=== PATIENT | female | born 1990 | race African-American/Black ===

== ENCOUNTER 2018-08-15 13:39 | Inpatient (IN) | payer OTHER ==
--- NOTE | 2018-08-15 14:16 | PDOC ---
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 Patient has had a uri since fri with symptoms of rhinorrhea, sore throat, cough productive of yellow sputum and subjective fever. Yesterday at PCP her BP was elevated 160's/110's (usually wnl w/o medication). she was prescribed lisinopril 10 and norvasc 5 as well as augmentin. This morning her blood work indicated that her creat went up to 5 from previously measured 2 ( 2 mo ago). today she is hyertensive despite taking lisinopril (not norvasc). She denies recent fatigue, edema, weight gain, oliguria, polyuria, frothy urine, malodorous urine, dysuria, hematuria, flank pain. Denies NSAID use. Has not taken prednisone since 2013. Follows with Dr Steinberg. 08/15/18 14:17 08/15/18 14:41 Past History - Past Medical History Allergies/Adverse Reactions: Allergies Allergy/AdvReac Type Severity Reaction Status Date / Time ibuprofen AdvReac Unknown Verified 06/30/15 08:16 Home Medications: Ambulatory Orders NK [No Known Home Medication] 06/30/15 Anemia: No Asthma: Yes Cancer: No Cardiac Disorders: No CVA: No COPD: No CHF: No Dementia: No Diabetes: No GI Disorders: No Disorders: No HTN: Yes Hypercholesterolemia: No Liver Disease: No Seizures: No Thyroid Disease: No - Immunization History Immunization Up to Date: Yes - Suicide/Smoking/Psychosocial Hx Smoking History: Never smoked Hx Alcohol Use: No Drug/Substance Use Hx: No Substance Use Type: Alcohol Hx Substance Use Treatment: No *Physical Exam - Vital Signs Last Vital Signs Temp Pulse Resp BP Pulse Ox 98.4 F 97 H 17 167/112 H 98 08/15/18 13:46 08/15/18 13:46 08/15/18 13:46 08/15/18 13:46 08/15/18 13:46 Moderate Sedation - Procedure Monitoring Vital Signs: Procedure Monitoring Vital Signs Temperature 98.4 F 08/15/18 13:46 Pulse Rate 97 H 08/15/18 13:46 Respiratory Rate 17 08/15/18 13:46 Blood Pressure 167/112 H 08/15/18 13:46 O2 Sat by Pulse Oximetry (%) 98 08/15/18 13:46 ED Treatment Course - LABORATORY CBC & Chemistry Diagram: 08/15/18 15:05 08/15/18 15:05 - ADDITIONAL ORDERS Additional order review: 08/15/18 15:[address] Lockhart about patient, ok to control htn with Norvasc, if unsuccessful can try hydralazine. 08/15/18 15:37 labs noted; creat 6.3, k 4.9, 2+ protein 2+ blood in urine. renal us p/d repeat BP 154/114, will administer hydralazine 10 iv patient to be admitted to m/s for BP management and further renal workup 08/15/18 15:42 08/15/18 15:43 *DC/Admit/Observation/Transfer Diagnosis at time of Disposition: Acute renal failure (ARF) Qualifiers: Acute renal failure type: unspecified Qualified Code(s): N17.9 - Acute kidney failure, unspecified Hypertension Qualifiers: Hypertension type: secondary to other renal disorders Qualified Code(s): I15.1 - Hypertension secondary to other renal disorders; N28.89 - Other specified disorders of kidney and ureter - Discharge Dispostion Decision to Admit order: Yes - Referrals Referrals: Luis A Morris MD [Primary Care Provider] - - Patient Instructions - Post Discharge Activity
[2018-08-15] MEDS ORDERED: amLODIPine BESYLATE 5 MG TABLET (FP) PO ONE (14:38)
[2018-08-15] MEDS ORDERED: amLODIPine BESYLATE 5 MG TABLET (FP) ONE (14:50)
--- NOTE | 2018-08-15 14:58 | PDOC ---
Attending Attestation - Medical Decision Making 08/15/18 14:43 Dr. Lockhart was paged via phone service. Awaiting call back. 08/15/18 15:00 Case was discussed with Dr. Singh. 08/15/18 15:54 Dr. Payton was paged via phone service. Awaiting call back. 08/15/18 15:57 Dr. Payton returned call regarding admission and case was discussed with Dr. Singh. <Fifi Hunter - Last Filed: 08/15/18 16:03> - Resident Resident Name: Ami Singh - ED Attending Attestation I have performed the following: I have examined & evaluated the patient, The case was reviewed & discussed with the resident, I agree w/resident's findings & plan, Exceptions are as noted - HPI HPI: 08/15/18 16:43 The patient is a 28 year old female, with a significant past medical history of HTN (lisinopril) and focal proliferative immune complex mediated GN (biopsy 2015 ), who presents to the emergency department with s/p abnormal creatinine levels. The patient reports her PCP, Dr. Morris, performed blood tests yesterday and her creatinine levels raised from 2 to 5 (previously measured 2 [address]). [address] Morris also found the patient to be hypertensive, with a BP of 160/110. The patient reports sore throat, cough productive of yellow sputum, rhinorrhea, and subjective fever. She denies recent fatigue, edema, or weight gain. She denies recent headache, nausea, vomit, diarrhea or constipation. She denies recent dysuria, frequency, urgency or hematuria. She denies recent chest pain or shortness of breath. Allergies: ibuprofen Past surgical history: None reported. Social history: Nonsmoker. Denies EtOH use and recreational drug use. Primary Care Physician: Dr. Luis A Morris - Physicial Exam PE: 08/15/18 17:04 GENERAL: The patient is awake, alert, and fully oriented, Nontoxic - in no acute distress. Obese HEAD: Normocephalic, atraumatic. EYES: extraocular movements intact, sclera anicteric, conjunctiva clear. ENT: Normal voice, Moist mucous membranes. NECK: Normal range of motion, supple LUNGS: Breath sounds equal, clear to auscultation bilaterally. No wheezes, no rhonchi, no rales. HEART: Regular rate and rhythm, ABDOMEN: Soft, nontender, No guarding, no rebound. . No CVA tenderness EXTREMITIES: Normal range of motion, no edema. NEUROLOGICAL: No facial assymetry, Normal speech, moving all 4 extremities spontaneously and symmetrically PSYCH: Normal mood, normal affect. SKIN: Warm, Dry, normal turgor, - Medical Decision Making 08/15/18 14:57 28y F hx of Focal proliferative glomerular nephritis htn, presents with abnormal blood work, cr 2.5 --> 5. pt notes she has had runny nose, congestion/cough was also noted to be hypertensive will give anti hypertensives anticipate admission for acute on chronic renal failure <Elver Salinas - Last Filed: 08/15/18 17:05>
[2018-08-15 15:16] LABS: URINE APPEARANCE CLEAR; URINE BILIRUBIN NEGATIVE (<2.0 mg/dL); URINE COLOR STRAW; URINE GLUCOSE (UA) NEGATIVE (NEGATIVE); URINE KETONE NEGATIVE (NEGATIVE); URINE LEUK ESTERASE NEGATIVE (NEGATIVE); URINE NITRITE NEGATIVE (NEGATIVE); URINE PROTEIN 2+ (NEGATIVE); URINE UROBILINOGEN NEGATIVE mg/dL (0.2-1.0)
[2018-08-15 15:17] LABS: BASO % 0.4 % (0-2.0); EOS % 5.5 % (0-4.5); HEMATOCRIT 37.7 % (32.4-45.2); HEMOGLOBIN 12.7 GM/dL (10.7-15.3); LYMPH % 18.9 % (8-40); MCH 28.7 pg (25.7-33.7); MCHC 33.7 g/dl (32.0-36.0); MEAN CELL VOLUME 85.4 fl (80-96); MEAN PLT VOLUME 10.9 fl (7.5-11.1); MONO % 12.5 % (3.8-10.2); NEUT % 62.7 % (42.8-82.8); PLATELET COUNT 190 K/MM3 (134-434); RBC 4.42 M/mm3 (3.60-5.2); RDW 13.8 % (11.6-15.6); WHITE BLOOD COUNT 4.7 K/mm3 (4.0-10.0)
[2018-08-15 15:24] LABS: EPI CELLS RARE /HPF (FEW)
[2018-08-15 15:32] LABS: ALBUMIN 3.5 g/dl (3.4-5.0); ALK PHOS 93 U/L (45-117); ANION GAP 5 MMOL/L (8-16); BILIRUBIN,TOTAL 0.6 mg/dL (0.2-1); BLOOD UREA NITROGEN 40 mg/dL (7-18); CALCIUM 8.1 mg/dL (8.5-10.1); CHLORIDE 108 mmol/L (98-107); CO2 26 mmol/L (21-32); CREATININE 6.3 mg/dL (0.55-1.3); GLUCOSE,RANDOM 99 mg/dL (74-106); POTASSIUM 4.9 mmol/L (3.5-5.1); SGOT/AST 26 U/L (15-37); SGPT/ALT 24 U/L (13-61); SODIUM 139 mmol/L (136-145); TOT PROT 7.6 g/dl (6.4-8.2)
[2018-08-15] MEDS ORDERED: hydrALAZINE HCL 20 MG/ML VIAL IVPUSH ONE (15:42)
[2018-08-15] MEDS ORDERED: hydrALAZINE HCL 20 MG/ML VIAL ONE (16:48)
--- NOTE | 2018-08-15 18:21 | CON.NEP ---
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 Patient has had a uri since fri with symptoms of rhinorrhea, sore throat, cough productive of yellow sputum and subjective fever. Yesterday at PCP her BP was elevated 160's/110's (usually wnl w/o medication). she was prescribed lisinopril 10 and norvasc 5 as well as augmentin. This morning her blood work indicated that her creat went up to 5 from previously measured 2 ( 2 mo ago). today she is hyertensive despite taking lisinopril (not norvasc). She denies recent fatigue, edema, weight gain, oliguria, polyuria, frothy urine, malodorous urine, dysuria, hematuria, flank pain. Denies NSAID use. Has not taken prednisone since 2013. Follows with Dr Steinberg Does not have any uremic symptoms. Appetite is good. Says she has not fopllowed up due to lackof insurance. Does have menstruation now but no different then usual - History Source History Provided By: Patient, Medical Record - Past Medical History Cardio/Vascular: Yes: HTN Renal/: Yes: Renal Failure ...LMP: 05/30/15 - Alcohol/Substance Use Hx Alcohol Use: No - Smoking History Smoking history: Never smoked Home Medications - Allergies Allergies/Adverse Reactions: Allergies Allergy/AdvReac Type Severity Reaction Status Date / Time ibuprofen AdvReac Unknown Verified 06/30/15 08:16 - Home Medications Home Medications: Ambulatory Orders Amlodipine Besylate 5 mg PO DAILY 08/15/18 Amoxicillin/Potassium Clav [Amox-Clav 875-125 mg Tablet] 1 tab PO BID 08/15/18 Lisinopril 10 mg PO DAILY 08/15/18 Review of Systems - Review of Systems Constitutional: reports: Fever Eyes: reports: No Symptoms HENT: reports: Throat Pain Neck: reports: No Symptoms Cardiovascular: reports: No Symptoms Respiratory: reports: No Symptoms Gastrointestinal: reports: No Symptoms Genitourinary: reports: No Symptoms Breasts: reports: No Symptoms Reported Musculoskeletal: reports: No Symptoms Integumentary: reports: No Symptoms Neurological: reports: No Symptoms Endocrine: reports: No Symptoms Hematology/Lymphatic: reports: No Symptoms Psychiatric: reports: No Symptoms Nephrology Consult - Height Height: 5 ft 7 in - Weight Weight: 250 lb - BMI Body Mass Index (BMI): 39.1 - Lab Results CBC,BMP: CBC, BMP 08/15/18 15:05 08/15/18 15:05 Anion Gap: Anion Gap Anion Gap 5 MMOL/L (8-16) L 08/15/18 15:05 - Imaging Ultrasound: Image Reviewed (small echogenic kidneys with no hydro) - Physical Examination Vital Signs: Vital Signs Temperature 98.1 F 08/15/18 16:56 Pulse Rate 98 H 08/15/18 17:32 Respiratory Rate 20 08/15/18 17:32 Blood Pressure 145/88 08/15/18 17:32 O2 Sat by Pulse Oximetry (%) 100 08/15/18 17:32 Constitutional: Yes: Well Nourished, No Distress, Anxious Eyes: Yes: Conjunctiva Clear HENT: Yes: Atraumatic, Normocephalic Neck: Yes: Supple, Trachea Midline Cardiovascular: Yes: Regular Rate and Rhythm Respiratory: Yes: Regular, CTA Bilaterally Gastrointestinal: Yes: Normal Bowel Sounds Musculoskeletal: Yes: WNL Extremities: Yes: WNL Edema: No Integumentary: Yes: WNL Wound/Incision: Yes: Clean/Dry Neurological: Yes: Alert, Oriented, Other (no asterixis and no clonus) Psychiatric: Yes: Alert, Oriented Assessment/Plan IMPRESSION she likely has progression of kidney disease also is hypertensive PLAN hold lisinopril continue norvasc, add labetalol if necessary start prednisone 60 mg daily have rheum eval I discussed hd with her MV
[2018-08-15] MEDS ORDERED: ACETAMINOPHEN 325 MG TABLET (FP) PO ONE (19:16)
[2018-08-15] MEDS ORDERED: ACETAMINOPHEN 325 MG TABLET (FP) PO PRN (20:54)
[2018-08-16 00:42] VITALS: BMI 41.6
[2018-08-16] MEDS ORDERED: guaiFENesin 200 MG/10 ML 10 ML UNIT-DOSE CUPS PO ONE (03:39)
[2018-08-16 07:16] LABS: BASO % 0.6 % (0-2.0); EOS % 5.5 % (0-4.5); HEMATOCRIT 37.8 % (32.4-45.2); HEMOGLOBIN 12.7 GM/dL (10.7-15.3); LYMPH % 31.9 % (8-40); MCH 28.6 pg (25.7-33.7); MCHC 33.5 g/dl (32.0-36.0); MEAN CELL VOLUME 85.5 fl (80-96); MEAN PLT VOLUME 10.4 fl (7.5-11.1); MONO % 13.2 % (3.8-10.2); NEUT % 48.8 % (42.8-82.8); PLATELET COUNT 178 K/MM3 (134-434); RBC 4.43 M/mm3 (3.60-5.2); RDW 13.4 % (11.6-15.6); WHITE BLOOD COUNT 4.5 K/mm3 (4.0-10.0)
[2018-08-16 07:58] LABS: ALBUMIN 3.4 g/dl (3.4-5.0); ALK PHOS 94 U/L (45-117); ANION GAP 8 MMOL/L (8-16); BILIRUBIN,TOTAL 0.8 mg/dL (0.2-1); BLOOD UREA NITROGEN 38 mg/dL (7-18); CALCIUM 8.1 mg/dL (8.5-10.1); CHLORIDE 105 mmol/L (98-107); CO2 25 mmol/L (21-32); CREATININE 6.3 mg/dL (0.55-1.3); GLUCOSE,RANDOM 91 mg/dL (74-106); POTASSIUM 4.1 mmol/L (3.5-5.1); SGOT/AST 14 U/L (15-37); SGPT/ALT 21 U/L (13-61); SODIUM 137 mmol/L (136-145); TOT PROT 7.2 g/dl (6.4-8.2)
[2018-08-16] MEDS: predniSONE 20 MG TABLET (UD) PO SCH (09:12)
[2018-08-16] MEDS: amLODIPine BESYLATE 5 MG TABLET (FP) PO SCH (09:12)
[2018-08-16] MEDS: HEPARIN NA (PORCINE) 5,000 UNITS/ML 1ML VIAL SQ SCH ×2 (09:12→21:51)
--- NOTE | 2018-08-16 09:58 | CON.CARD ---
Consult Consult Specialty:: Cardiology Referred by:: Dr. Payton Reason for Consultation:: HTN - History of Present Illness Chief Complaint: Sent by PCP for elevated creatinine and HTN History of Present Illness: Poor historian. History obtained from chart and patient. 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 Patient has had a uri since wed with symptoms of rhinorrhea, sore throat, cough productive of yellow sputum and subjective fever. On 08/14 at PCP her BP was elevated 160's/110's (usually wnl w/o medication). She was prescribed lisinopril 10 and norvasc 5 as well as augmentin. This morning her blood work indicated that her creat went up to 5 from previously measured 2 ( 2 mo ago). today she is hyertensive despite taking lisinopril (not norvasc). She denies recent fatigue, edema, weight gain, oliguria, polyuria, frothy urine, malodorous urine, dysuria, hematuria, flank pain. Denies NSAID use. Has not taken prednisone since 2013. Follows with Dr Steinberg Does not have any uremic symptoms. Appetite is good. Says she has not fopllowed up due to lackof insurance. Does have menstruation now but no different then usual She denies CP, palpitations or syncope. Denies edema. Denies prior cardiac hx. - History Source History Provided By: Patient, Medical Record - Past Medical History Cardio/Vascular: Yes: HTN Renal/: Yes: Renal Failure ...LMP: 06/15/15 ...: No - Alcohol/Substance Use Hx Alcohol Use: No - Smoking History Smoking history: Never smoked - Social History ADL: Independent History of Recent Travel: No Home Medications - Allergies Allergies/Adverse Reactions: Allergies Allergy/AdvReac Type Severity Reaction Status Date / Time ibuprofen AdvReac Unknown Verified 06/30/15 08:16 - Home Medications Home Medications: Ambulatory Orders Amlodipine Besylate 5 mg PO DAILY 08/15/18 Amoxicillin/Potassium Clav [Amox-Clav 875-125 mg Tablet] 1 tab PO BID 08/15/18 Lisinopril 10 mg PO DAILY 08/15/18 Family Disease History - Family Disease History Family History: Unremarkable (no early CAD or SCD) Review of Systems Findings/Remarks: see HPI - Review of Systems Constitutional: reports: Other (cough, fever, URI sx.) Eyes: reports: No Symptoms HENT: reports: No Symptoms Neck: reports: No Symptoms Cardiovascular: reports: No Symptoms Respiratory: reports: Cough Gastrointestinal: reports: No Symptoms Genitourinary: reports: No Symptoms Breasts: reports: No Symptoms Reported Musculoskeletal: reports: No Symptoms Integumentary: reports: No Symptoms Neurological: reports: No Symptoms Endocrine: reports: No Symptoms Hematology/Lymphatic: reports: No Symptoms Psychiatric: reports: No Symptoms - Risk Factors Known Risk Factors: Yes: Hypertension Vital Signs: Vital Signs Temperature 98.1 F 08/16/18 05:55 Pulse Rate 87 08/16/18 05:55 Respiratory Rate 18 08/16/18 05:55 Blood Pressure 144/95 08/16/18 05:55 O2 Sat by Pulse Oximetry (%) 100 08/16/18 03:00 Constitutional: Yes: No Distress, Calm Eyes: Yes: Conjunctiva Clear, EOM Intact HENT: Yes: Atraumatic, Normocephalic Neck: Yes: Supple, Trachea Midline Respiratory: Yes: CTA Bilaterally (no active wheezing or rales.) Gastrointestinal: Yes: Soft, Abdomen, Obese Cardiovascular: Yes: Regular Rate and Rhythm JVD: No Carotid Bruit: No PMI: Non-Displaced Heart Sounds: Yes: S1, S2 (RRR) Edema: No Neurological: Yes: Alert, Oriented ...Motor Strength: WNL - Other Data Labs, Other Data: CBC, BMP 08/16/18 06:00 08/16/18 06:00 Laboratory Tests 08/15/18 08/15/18 08/15/18 15:08 15:08 15:13 Urine Color Straw Urine Appearance Clear Ur Specific [place] 1.008 L Urine Protein 2+ H Urine Glucose (UA) Negative Urine Ketones Negative Urine Blood 2+ H Urine Nitrite Negative Urine Bilirubin Negative Urine Urobilinogen Negative Ur Leukocyte Esterase Negative Ur Random Sodium 51 Ur Random Potassium 18.7 L Ur Random Chloride 42 L Urine Creatinine 81.0 Influenza A (Rapid) Negative Influenza B (Rapid) Negative NSR 86bpm, QT 490ms Echo: Pending Imaging - Results Ultrasound: Pending EKG: Image Reviewed Problem List - Problems (1) Acute renal failure (ARF) Code(s): N17.9 - ACUTE KIDNEY FAILURE, UNSPECIFIED Qualifiers: Acute renal failure type: unspecified Qualified Code(s): N17.9 - Acute kidney failure, unspecified (2) Hypertension Code(s): I10 - ESSENTIAL (PRIMARY) HYPERTENSION Qualifiers: Hypertension type: secondary to other renal disorders Qualified Code(s): I15.1 - Hypertension secondary to other renal disorders; N28.89 - Other specified disorders of kidney and ureter (3) Upper respiratory infection Code(s): J06.9 - ACUTE UPPER RESPIRATORY INFECTION, UNSPECIFIED Qualifiers: URI type: unspecified viral URI Qualified Code(s): J06.9 - Acute upper respiratory infection, unspecified (4) Abnormal ECG Code(s): R94.31 - ABNORMAL ELECTROCARDIOGRAM [ECG] [EKG] Assessment/Plan IMP: Acute on chronic renal failure Chronic HTN Abnl ECG REC: 1. Further w/u and treatment of ARF as per renal 2. Agree with Amlodipine for BP control, goal < 140/90. At this point does not seem to require addition of Labetalol. Avoid PRIYANKA/ARB. 3. Prolonged QT: Holter/ Echo/ keep lytes normalized. Asx with no hx of syncope or palpitations. Will follow. Thank you.
[2018-08-16] MEDS ORDERED: FLU VACCINE QUAD 60 MCG/0.5 ML (MDV 18-19) IM ONE (11:00)
--- NOTE | 2018-08-16 11:16 | EKG ---
Test Reason : Blood Pressure : / mmHG Vent. Rate : 086 BPM Atrial Rate : 086 BPM P-R Int : 140 ms QRS Dur : 090 ms QT Int : 410 ms P-R-T Axes : 030 019 042 degrees QTc Int : 490 ms NORMAL SINUS RHYTHM PROLONGED QT VOLTAGE CRITERIA FOR LEFT VENTRICULAR HYPERTROPHY ABNORMAL ECG NO PREVIOUS ECGS AVAILABLE Confirmed by BONIFACIO LEDBETTER MD ([id number]) on 08/16/2018 11:15:38 AM Referred By: Confirmed By:BONIFACIO LEDBETTER MD
--- NOTE | 2018-08-16 11:35 | PN ---
Progress Note (short form) - Note Progress Note: RENAL pt is awake and alert was tachycardic overnight but had no specific symptoms other than coughing seems anxious Last Vital Signs Temp Pulse Resp BP Pulse Ox 98.1 F 87 18 144/95 100 08/16/18 05:55 08/16/18 05:55 08/16/18 05:55 08/16/18 05:55 08/16/18 03:00 lungs clear cvs s1s2 rr abd soft ext no edema neuro a+ox3 CBC, BMP 08/16/18 06:00 08/16/18 06:00 Current Medications Generic Name Dose Route Start Last Admin Trade Name Freq PRN Reason Stop Dose Admin Acetaminophen 650 mg 08/15/18 20:54 Tylenol - PO Q6H PRN FEVER Amlodipine Besylate 5 mg 08/16/18 10:00 08/16/18 09:12 Norvasc - PO 5 mg DAILY DIANNE Administration Heparin Sodium (Porcine) 5,000 unit 08/16/18 10:00 08/16/18 09:12 Heparin - SQ 5,000 unit BID DIANNE Administration Prednisone 60 mg 08/16/18 10:00 08/16/18 09:12 Deltasone - PO 60 mg DAILY DIANNE Administration IMPRESSION she likely has progression of kidney disease also is hypertensive though bp seems better PLAN hold lisinopril continue norvasc, add labetalol if necessary start prednisone 60 mg daily have rheum eval I discussed hd with her I explained to her that steroids may not work but theres a small possibility they may. I also reminded her of the many side effects of steroids and she agreed to continue. I would keep her on prednisone and monitor her renal function. If no improvement or if worsening would dc steroids and start hd. I explained as well that I had another patient who had lupus and was started on hd but was able to come off after prednisone was started MV
--- NOTE | 2018-08-16 18:30 | HP ---
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 Pt was sent to ED by Dr Morris for evaluation of abnormal labs including elevated creatinine. Patient recently treated w/ augmentin for a URI. Her PMD noticed that her creatinine went up to 5 from previously measured 2 ( 2 mo ago). In the ER pt found to be hypertensive with a creatinine of 6. - Past Medical History Cardiovascular: Yes: HTN Renal/: Yes: Renal Failure ...LMP: 06/15/15 ...: No Rheumatology: Yes: Other (SLE) - Smoking History Smoking history: Never smoked - Alcohol/Substance Use Hx Alcohol Use: No - Social History ADL: Independent History of Recent Travel: No Home Medications - Allergies Allergies/Adverse Reactions: Allergies Allergy/AdvReac Type Severity Reaction Status Date / Time ibuprofen AdvReac Unknown Verified 06/30/15 08:16 - Home Medications Home Medications: Ambulatory Orders Amlodipine Besylate 5 mg PO DAILY 08/15/18 Amoxicillin/Potassium Clav [Amox-Clav 875-125 mg Tablet] 1 tab PO BID 08/15/18 Lisinopril 10 mg PO DAILY 08/15/18 Family Disease History - Family Disease History Family History: Unremarkable Review of Systems - Review of Systems Constitutional: reports: No Symptoms HENT: reports: No Symptoms Neck: reports: No Symptoms Cardiovascular: reports: No Symptoms Respiratory: reports: No Symptoms Gastrointestinal: reports: No Symptoms Genitourinary: reports: No Symptoms Physical Examination Vital Signs: Vital Signs Temperature 98.0 F 08/16/18 14:00 Pulse Rate 103 H 08/16/18 14:00 Respiratory Rate 22 H 08/16/18 14:00 Blood Pressure 153/92 08/16/18 14:00 O2 Sat by Pulse Oximetry (%) 100 08/16/18 09:00 Constitutional: Yes: Well Nourished HENT: Yes: WNL Neck: Yes: WNL, Supple Cardiovascular: Yes: WNL, Regular Rate and Rhythm Respiratory: Yes: WNL, Regular, CTA Bilaterally Gastrointestinal: Yes: WNL, Normal Bowel Sounds, Soft Musculoskeletal: Yes: WNL Extremities: Yes: WNL Edema: No Neurological: Yes: WNL, Alert, Oriented ...Motor Strength: WNL Labs: CBC, BMP 08/16/18 06:00 08/16/18 06:00 Problem List - Problems (1) Acute renal failure (ARF) Assessment/Plan: Cont to monitor lytes Rneal consult noted Possible HDs however pt is still refusing Cont to monitor Cont orednisone Will get rheum consult Code(s): N17.9 - ACUTE KIDNEY FAILURE, UNSPECIFIED Qualifiers: Acute renal failure type: unspecified Qualified Code(s): N17.9 - Acute kidney failure, unspecified (2) Accelerated essential hypertension Assessment/Plan: Bp improving Pt has improved tachycardia Cont norvasc Pt wearing holter monitor Code(s): I10 - ESSENTIAL (PRIMARY) HYPERTENSION (3) Systemic lupus Assessment/Plan: Unclear when pt was diagnosed w/ lupus Rheum consult Code(s): M32.9 - SYSTEMIC LUPUS ERYTHEMATOSUS, UNSPECIFIED
--- NOTE | 2018-08-17 08:46 | PN ---
Progress Note, Physician Chief Complaint: alert and oriented No CP or SOB No palps or dizziness - Current Medication List Current Medications: Active Medications Acetaminophen (Tylenol -) 650 mg PO Q6H PRN PRN Reason: FEVER Amlodipine Besylate (Norvasc -) 5 mg PO DAILY [facility] Last Admin: 08/16/18 09:12 Dose: 5 mg Heparin Sodium (Porcine) (Heparin -) 5,000 unit SQ BID [facility] Last Admin: 08/16/18 21:51 Dose: 5,000 unit Prednisone (Deltasone -) 60 mg PO DAILY [facility] Last Admin: 08/16/18 09:12 Dose: 60 mg - Objective Vital Signs: Vital Signs Temperature 98.0 F 08/17/18 06:28 Pulse Rate 85 08/17/18 06:28 Respiratory Rate 20 08/17/18 06:28 Blood Pressure 137/82 08/17/18 06:28 O2 Sat by Pulse Oximetry (%) 100 08/16/18 22:00 Constitutional: Yes: No Distress, Calm Eyes: Yes: Conjunctiva Clear Cardiovascular: Yes: Regular Rate and Rhythm Respiratory: Yes: CTA Bilaterally Gastrointestinal: Yes: Soft Edema: No Neurological: Yes: Alert, Oriented ...Motor Strength: WNL Labs: CBC, BMP 08/16/18 06:00 08/16/18 06:00 Problem List - Problems (1) Acute renal failure (ARF) Code(s): N17.9 - ACUTE KIDNEY FAILURE, UNSPECIFIED Qualifiers: Acute renal failure type: unspecified Qualified Code(s): N17.9 - Acute kidney failure, unspecified (2) Hypertension Code(s): I10 - ESSENTIAL (PRIMARY) HYPERTENSION Qualifiers: Hypertension type: secondary to other renal disorders Qualified Code(s): I15.1 - Hypertension secondary to other renal disorders; N28.89 - Other specified disorders of kidney and ureter (3) Upper respiratory infection Code(s): J06.9 - ACUTE UPPER RESPIRATORY INFECTION, UNSPECIFIED Qualifiers: URI type: unspecified viral URI Qualified Code(s): J06.9 - Acute upper respiratory infection, unspecified (4) Abnormal ECG Code(s): R94.31 - ABNORMAL ELECTROCARDIOGRAM [ECG] [EKG] Assessment/Plan IMP: Acute on chronic renal failure Chronic HTN Abnl ECG REC: 1. Further w/u and treatment of ARF as per renal 2. Agree with Amlodipine for BP control, goal < 140/90. At this point does not seem to require addition of Labetalol. Avoid PRIYANKA/ARB. 3. Prolonged QT: Holter/ Echo/ keep lytes normalized. Tele when bed available
[2018-08-17] MEDS: amLODIPine BESYLATE 5 MG TABLET (FP) PO SCH (12:32)
[2018-08-17] MEDS: predniSONE 20 MG TABLET (UD) PO SCH (12:32)
[2018-08-17] MEDS: HEPARIN NA (PORCINE) 5,000 UNITS/ML 1ML VIAL SQ SCH ×2 (12:34→21:11)
--- NOTE | 2018-08-17 13:45 | HOL ---
Hook-up date: 2018-08-16 11:55:00 Duration: 23:33:00 Test Indications: PROLONGED QT Medications: [id number] QRS complexes 44 Ventricular ectopics which represent <1 % of total QRS comp. * Supraventricular ectopics which represent % of total QRS comp. * Paced QRS complexs which represent % of total QRS comp. * % of Time Classified as Noise VENTRICULAR ECTOPY 44 Isolated 0 Bigeminal Cycles 0 Couplets 0 Runs 0 Beats in Runs * Beats LONGEST at * BPM at :: -- * Beats FASTEST at * BPM at :: -- SUPRAVENTRICULAR ECTOPY * Isolated * Couplets * Runs * Beats in Runs * Beats LONGEST at * BPM at :: -- * Beats FASTEST at * BPM at :: -- HEART RATES 55 MIN at 08:50:32 2018-08-17 92 AVG 152 MAX at 18:09:59 2018-08-16 LONGEST RR 1.144 secs at 10:45:25 2018-08-17 SCANNED BY JIN MATSON ON 08/17/18 1. BASELINE RHYTHM IS SINUS RHYTHM WITH AVERAGE HR OF 92 BPM. RATES VARIED FROM 55 TO 152 BPM 2. OCCASIONAL VENTRICULAR ECTOPIES INCLUDING PVCS 3. NO ATRIAL ECTOPIES 4. NO SIGNIFICANT ST-T WAVE VARIATIONS ARE SEEN 5. DIARY WAS NOT OBTAINED Confirmed by HELEN MURRY, ANSLEY ([id number]) on 08/17/2018 1:44:30 PM Referred By: JAIME LAST DREGH Overread By: ANSLEY CERVANTES MD
--- NOTE | 2018-08-17 13:58 | ECHO ---
Name: TISH NERI Exam:Adult Echocardiogram Study Date: 08/17/2018 11:52 AM Age: 28 yrs Reason For Study: HTN Height: 67 in Weight: 226 lb BSA: 2.1 m2 MMode/2D Measurements & Calculations IVSd: 0.98 cm Ao root diam: 2.4 cm LVIDd: 5.1 cm LA dimension: 3.1 cm LVIDs: 2.8 cm LVPWd: 0.98 cm EDV(Teich): 125.7 ml LAV (MOD-bp): 44.8 ml ESV(Teich): 29.5 ml Doppler Measurements & Calculations MV E max salvador: 60.6 cm/sec TR max salvador: 221.5 cm/sec MV A max salvador: 63.1 cm/sec TR max P.7 mmHg MV E/A: 0.96 MV dec time: 0.11 sec Med Peak E' Salvador: 8.7 cm/sec Med E/e': 7.0 Lat Peak E' Salvador: 9.0 cm/sec Lat E/e': 6.7 Procedure A complete two-dimensional transthoracic echocardiogram was performed (2D, M-mode, Doppler and color flow Doppler). Left Ventricle The left ventricle is normal in size. Left ventricular systolic function is normal. Ejection Fraction = 60- 65%. No regional wall motion abnormalities noted. Right Ventricle The right ventricle is normal size. The right ventricular systolic function is normal. Atria The left atrial size is normal. LA volume index is 21 ml/m2. Right atrial size is normal. Mitral Valve The mitral valve is normal in structure and function. There is trace to mild mitral regurgitation. Tricuspid Valve The tricuspid valve is normal in structure and function. There is mild tricuspid regurgitation. Right ventricular systolic pressure is normal. Aortic Valve The aortic valve is normal in structure and function. No aortic regurgitation is present. Pulmonic Valve The pulmonic valve is not well visualized. Trace to mild pulmonic valvular regurgitation. Great Vessels The aortic root is normal size. Pericardium/Pleura There is no pericardial effusion. Interpretation Summary The left ventricle is normal in size. Left ventricular systolic function is normal. No regional wall motion abnormalities noted. Ejection Fraction = 60-65%. The right ventricular systolic function is normal. The left atrial size is normal. Right atrial size is normal. There is trace to mild mitral regurgitation. There is mild tricuspid regurgitation. Right ventricular systolic pressure is normal. Trace to mild pulmonic valvular regurgitation. There is no pericardial effusion. Previous study is not available for comparison Juaquin Velásquez MD 08/17/2018 01:58 PM
--- NOTE | 2018-08-17 15:43 | PN ---
Progress Note, Physician History of Present Illness: Pt seen and examined at bedside. She is awake and alert. She denies shortness of breath. - Current Medication List Current Medications: Active Medications Acetaminophen (Tylenol -) 650 mg PO Q6H PRN PRN Reason: FEVER Amlodipine Besylate (Norvasc -) 5 mg PO DAILY [facility] Last Admin: 08/17/18 12:32 Dose: 5 mg Heparin Sodium (Porcine) (Heparin -) 5,000 unit SQ BID [facility] Last Admin: 08/17/18 12:34 Dose: Not Given Prednisone (Deltasone -) 60 mg PO DAILY [facility] Last Admin: 08/17/18 12:32 Dose: 60 mg - Objective Vital Signs: Vital Signs Temperature 97.4 F L 08/17/18 14:04 Pulse Rate 75 08/17/18 14:04 Respiratory Rate 20 08/17/18 10:00 Blood Pressure 145/88 08/17/18 14:04 O2 Sat by Pulse Oximetry (%) 100 08/16/18 22:00 Constitutional: Yes: Calm Eyes: Yes: Conjunctiva Clear HENT: Yes: Atraumatic Cardiovascular: Yes: S1, S2 Respiratory: Yes: CTA Bilaterally Gastrointestinal: Yes: Soft, Abdomen, Obese Genitourinary: Yes: WNL Musculoskeletal: Yes: WNL Edema: No Integumentary: Yes: WNL Neurological: Yes: Oriented Psychiatric: Yes: Oriented Labs: CBC, BMP 08/16/18 06:00 08/16/18 06:00 Problem List - Problems (1) CKD (chronic kidney disease) Code(s): N18.9 - CHRONIC KIDNEY DISEASE, UNSPECIFIED (2) Upper respiratory infection Code(s): J06.9 - ACUTE UPPER RESPIRATORY INFECTION, UNSPECIFIED Qualifiers: URI type: unspecified viral URI Qualified Code(s): J06.9 - Acute upper respiratory infection, unspecified Assessment/Plan Current Medications Generic Name Dose Route Start Last Admin Trade Name Freq PRN Reason Stop Dose Admin Acetaminophen 650 mg 08/15/18 20:54 Tylenol - PO Q6H PRN FEVER Amlodipine Besylate 5 mg 08/16/18 10:00 08/17/18 12:32 Norvasc - PO 5 mg DAILY [facility] Administration Heparin Sodium (Porcine) 5,000 unit 08/16/18 10:00 08/17/18 12:34 Heparin - SQ Not Given BID [facility] Prednisone 60 mg 08/16/18 10:00 08/17/18 12:32 Deltasone - PO 60 mg DAILY [facility] Administration Impression 1. CKD 2. HTN 3. upper resp infection 4. non compliance Plan - likely progression of kidney disease - rheum follow up - hold chloé - cont amlodipine and monitor bp - pt was sent for transplant eval but stopped following up - vascular eval for fistula - trial of steroids - will follow Dr Steinberg
--- NOTE | 2018-08-17 17:17 | PN ---
Progress Note, Physician History of Present Illness: c/o congestion never got abx for uri - Current Medication List Current Medications: Active Medications Acetaminophen (Tylenol -) 650 mg PO Q6H PRN PRN Reason: FEVER Amlodipine Besylate (Norvasc -) 5 mg PO DAILY [facility] Last Admin: 08/17/18 12:32 Dose: 5 mg Heparin Sodium (Porcine) (Heparin -) 5,000 unit SQ BID [facility] Last Admin: 08/17/18 12:34 Dose: Not Given Prednisone (Deltasone -) 60 mg PO DAILY [facility] Last Admin: 08/17/18 12:32 Dose: 60 mg - Objective Vital Signs: Vital Signs Temperature 97.4 F L 08/17/18 14:04 Pulse Rate 75 08/17/18 14:04 Respiratory Rate 20 08/17/18 10:00 Blood Pressure 145/88 08/17/18 14:04 O2 Sat by Pulse Oximetry (%) 100 08/16/18 22:00 Constitutional: Yes: No Distress Eyes: Yes: Conjunctiva Clear HENT: Yes: Atraumatic Neck: Yes: Supple Cardiovascular: Yes: Regular Rate and Rhythm Respiratory: Yes: CTA Bilaterally Gastrointestinal: Yes: Normal Bowel Sounds Extremities: Yes: WNL Edema: Yes Edema: LLE: Trace, RLE: Trace Peripheral Pulses WNL: Yes Neurological: Yes: Alert, Oriented Labs: CBC, BMP 08/16/18 06:00 08/16/18 06:00 Problem List - Problems (1) CKD (chronic kidney disease) Assessment/Plan: nephro note reviewed for HD in future on prednisone Code(s): N18.9 - CHRONIC KIDNEY DISEASE, UNSPECIFIED (2) Hypertension Assessment/Plan: on meds monitor bp Code(s): I10 - ESSENTIAL (PRIMARY) HYPERTENSION Qualifiers: Hypertension type: secondary to other renal disorders Qualified Code(s): I15.1 - Hypertension secondary to other renal disorders; N28.89 - Other specified disorders of kidney and ureter (3) Systemic lupus Code(s): M32.9 - SYSTEMIC LUPUS ERYTHEMATOSUS, UNSPECIFIED (4) Upper respiratory infection Assessment/Plan: no need for abx decongestant prn cough syrup Code(s): J06.9 - ACUTE UPPER RESPIRATORY INFECTION, UNSPECIFIED Qualifiers: URI type: unspecified viral URI Qualified Code(s): J06.9 - Acute upper respiratory infection, unspecified Assessment/Plan COVERING FOR DR LOVETT TODAY
[2018-08-17] MEDS: PSEUDOEPHEDRINE HCL 30 MG TABLET PO SCH ×2 (21:11→23:39)
[2018-08-18 07:50] LABS: BASO % 0.1 % (0-2.0); HEMATOCRIT 38.4 % (32.4-45.2); HEMOGLOBIN 12.5 GM/dL (10.7-15.3); LYMPH % 14.6 % (8-40); MCHC 32.6 g/dl (32.0-36.0); MEAN CELL VOLUME 85.8 fl (80-96); MEAN PLT VOLUME 10.5 fl (7.5-11.1); MONO % 7.7 % (3.8-10.2); NEUT % 77.6 % (42.8-82.8); PLATELET COUNT 220 K/MM3 (134-434); RBC 4.47 M/mm3 (3.60-5.2); RDW 13.5 % (11.6-15.6); WHITE BLOOD COUNT 8.5 K/mm3 (4.0-10.0)
[2018-08-18 07:58] LABS: ALBUMIN 3.4 g/dl (3.4-5.0); ALK PHOS 90 U/L (45-117); ANION GAP 10 MMOL/L (8-16); BILIRUBIN,TOTAL 0.3 mg/dL (0.2-1); BLOOD UREA NITROGEN 56 mg/dL (7-18); CALCIUM 8.5 mg/dL (8.5-10.1); CHLORIDE 103 mmol/L (98-107); CO2 21 mmol/L (21-32); CREATININE 6.7 mg/dL (0.55-1.3); GLUCOSE,RANDOM 101 mg/dL (74-106); POTASSIUM 4.7 mmol/L (3.5-5.1); SGOT/AST 9 U/L (15-37); SGPT/ALT 18 U/L (13-61); SODIUM 134 mmol/L (136-145); TOT PROT 7.3 g/dl (6.4-8.2)
--- NOTE | 2018-08-18 08:56 | PN ---
Progress Note, Physician Chief Complaint: no cp or sob Renal f/u noted Echo: normal EF, no sig valve dz Holter: rare VPCs - Current Medication List Current Medications: Active Medications Acetaminophen (Tylenol -) 650 mg PO Q6H PRN PRN Reason: FEVER Amlodipine Besylate (Norvasc -) 5 mg PO DAILY [facility] Last Admin: 08/17/18 12:32 Dose: 5 mg Heparin Sodium (Porcine) (Heparin -) 5,000 unit SQ BID [facility] Last Admin: 08/17/18 21:11 Dose: Not Given Prednisone (Deltasone -) 60 mg PO DAILY [facility] Last Admin: 08/17/18 12:32 Dose: 60 mg Pseudoephedrine HCl (Sudafed -) 30 mg PO QID [facility] Last Admin: 08/17/18 23:39 Dose: Not Given - Objective Vital Signs: Vital Signs Temperature 98.1 F 08/18/18 05:00 Pulse Rate 73 08/18/18 05:00 Respiratory Rate 16 08/18/18 05:00 Blood Pressure 132/79 08/18/18 05:00 O2 Sat by Pulse Oximetry (%) 99 08/17/18 21:00 Constitutional: Yes: No Distress Eyes: Yes: Conjunctiva Clear Cardiovascular: Yes: Regular Rate and Rhythm Respiratory: Yes: CTA Bilaterally Gastrointestinal: Yes: Soft, Abdomen, Obese Edema: No Neurological: Yes: Alert, Oriented ...Motor Strength: WNL Labs: CBC, BMP 08/18/18 06:30 08/18/18 06:30 Problem List - Problems (1) Acute renal failure (ARF) Code(s): N17.9 - ACUTE KIDNEY FAILURE, UNSPECIFIED Qualifiers: Acute renal failure type: unspecified Qualified Code(s): N17.9 - Acute kidney failure, unspecified (2) Hypertension Code(s): I10 - ESSENTIAL (PRIMARY) HYPERTENSION Qualifiers: Hypertension type: secondary to other renal disorders Qualified Code(s): I15.1 - Hypertension secondary to other renal disorders; N28.89 - Other specified disorders of kidney and ureter (3) Upper respiratory infection Code(s): J06.9 - ACUTE UPPER RESPIRATORY INFECTION, UNSPECIFIED Qualifiers: URI type: unspecified viral URI Qualified Code(s): J06.9 - Acute upper respiratory infection, unspecified (4) Abnormal ECG Code(s): R94.31 - ABNORMAL ELECTROCARDIOGRAM [ECG] [EKG] Assessment/Plan IMP: Acute on chronic renal failure Chronic HTN Abnl ECG REC: 1. Further w/u and treatment of ARF as per renal 2. Agree with Amlodipine for BP control, goal < 140/90. At this point does not seem to require addition of Labetalol. Avoid PRIYANKA/ARB. 3. Prolonged QT: Normal EF, Holter without sig. arrhythmias. Will repeat ECG. Needs outpatient f/u
[2018-08-18] MEDS ORDERED: PT OWN MED DRAWER 7, Y5N ONE (10:54)
[2018-08-18] MEDS: amLODIPine BESYLATE 5 MG TABLET (FP) PO SCH (10:57)
[2018-08-18] MEDS: predniSONE 20 MG TABLET (UD) PO SCH (10:57)
[2018-08-18] MEDS: PSEUDOEPHEDRINE HCL 30 MG TABLET PO SCH ×2 (10:58→14:07)
[2018-08-18] MEDS: HEPARIN NA (PORCINE) 5,000 UNITS/ML 1ML VIAL SQ SCH (10:59)
[2018-08-18 11:06] VITALS: TEMP 97.5
--- NOTE | 2018-08-18 12:15 | EKG ---
Test Reason : Blood Pressure : / mmHG Vent. Rate : 070 BPM Atrial Rate : 070 BPM P-R Int : 122 ms QRS Dur : 110 ms QT Int : 424 ms P-R-T Axes : 037 011 050 degrees QTc Int : 457 ms NORMAL SINUS RHYTHM WITH SINUS ARRHYTHMIA MINIMAL VOLTAGE CRITERIA FOR LVH, MAY BE NORMAL VARIANT CANNOT RULE OUT INFERIOR INFARCT , AGE UNDETERMINED ABNORMAL ECG Confirmed by MD RACHID, JAYLON ([id number]) on 08/18/2018 12:14:54 PM Referred By: [facility] Confirmed By:JAYLON RASHID MD
--- NOTE | 2018-08-18 13:47 | PN ---
Progress Note, Physician History of Present Illness: Pt seen and examined at bedside. She is awake and alert. She denies shortness of breath. She has good appetite. - Current Medication List Current Medications: Active Medications Acetaminophen (Tylenol -) 650 mg PO Q6H PRN PRN Reason: FEVER Amlodipine Besylate (Norvasc -) 5 mg PO DAILY [facility] Last Admin: 08/18/18 10:57 Dose: 5 mg Heparin Sodium (Porcine) (Heparin -) 5,000 unit SQ BID [facility] Last Admin: 08/18/18 10:59 Dose: Not Given Prednisone (Deltasone -) 60 mg PO DAILY [facility] Last Admin: 08/18/18 10:57 Dose: 60 mg Pseudoephedrine HCl (Sudafed -) 30 mg PO QID [facility] Last Admin: 08/18/18 10:58 Dose: 30 mg - Objective Vital Signs: Vital Signs Temperature 97.5 F L 08/18/18 09:00 Pulse Rate 67 08/18/18 09:00 Respiratory Rate 20 08/18/18 09:00 Blood Pressure 136/93 08/18/18 09:00 O2 Sat by Pulse Oximetry (%) 99 08/17/18 21:00 Constitutional: Yes: Calm Eyes: Yes: Conjunctiva Clear HENT: Yes: Atraumatic Neck: Yes: Supple Cardiovascular: Yes: S1, S2 Respiratory: Yes: CTA Bilaterally Gastrointestinal: Yes: Soft, Abdomen, Obese Genitourinary: Yes: WNL Musculoskeletal: Yes: WNL Neurological: Yes: Oriented Psychiatric: Yes: Oriented Labs: CBC, BMP 08/18/18 06:30 08/18/18 06:30 Problem List - Problems (1) CKD (chronic kidney disease) Code(s): N18.9 - CHRONIC KIDNEY DISEASE, UNSPECIFIED (2) Upper respiratory infection Code(s): J06.9 - ACUTE UPPER RESPIRATORY INFECTION, UNSPECIFIED Qualifiers: URI type: unspecified viral URI Qualified Code(s): J06.9 - Acute upper respiratory infection, unspecified Assessment/Plan Current Medications Generic Name Dose Route Start Last Admin Trade Name Freq PRN Reason Stop Dose Admin Acetaminophen 650 mg 08/15/18 20:54 Tylenol - PO Q6H PRN FEVER Amlodipine Besylate 5 mg 08/16/18 10:00 08/18/18 10:57 Norvasc - PO 5 mg DAILY [facility] Administration Heparin Sodium (Porcine) 5,000 unit 08/16/18 10:00 08/18/18 10:59 Heparin - SQ Not Given BID [facility] Prednisone 60 mg 08/16/18 10:00 08/18/18 10:57 Deltasone - PO 60 mg DAILY [facility] Administration Pseudoephedrine HCl 30 mg 08/17/18 19:30 08/18/18 10:58 Sudafed - PO 30 mg QID [facility] Administration Impression 1. CKD 2. HTN 3. upper resp infection 4. non compliance Plan - pt is eager to go home - stp chloé - cont amlodipine - will follow as outpt - cont trial of prednisone - discussed with medical team - vascular follow up - will follow Dr Steinberg
[2018-08-18] MEDS ORDERED: CALCIUM 250MG/VIT-D 125 UNITS 1 COMBO TABLET PO SCH (14:00)
[2018-08-18 14:07] VITALS: BP 156/81; PULSE 68
[2018-08-19] MEDS ORDERED: PANTOPRAZOLE 20 MG TABLET (FP) PO SCH (10:00)
== END 2018-08-18 16:30 | disposition home or self-care (01) | DRG 469 ==
LOC: JER 13:39 → JERBED 15:48 → J6S 18:24
PROVIDERS: ADMIT Family Medicine Geriatric Medicine; ATTEND Family Medicine Geriatric Medicine
DX: N17.9 Acute kidney failure, unspecified (principal); J06.9 Acute upper respiratory infection, unspecified; R94.31 Abnormal electrocardiogram [ECG] [EKG]; R00.0 Tachycardia, unspecified; E66.9 Obesity, unspecified; Z68.41 Body mass index [BMI] 40.0-44.9, adult; I15.1 Hypertension secondary to other renal disorders; N05.8 Unspecified nephritic syndrome with other morphologic changes; I13.10 Hypertensive heart and chronic kidney disease without heart failure, with stage 1 through stage 4 chronic kidney disease, or unspecified chronic kidney disease; M32.9 Systemic lupus erythematosus, unspecified; N18.9 Chronic kidney disease, unspecified
CPT/HCPCS: 36415; 76775-TC; 80053; 81003; 81015; 82436; 82550; 82570; 84133; 84300; 84484; 85025; 87086; 87804; 90688; 93005; 93010; 93225; 93226; 93306-TC; 99283-25; G0008; J1644

== ENCOUNTER 2024-11-29 22:26 | Inpatient (IN) | payer OTHER ==
[2024-11-29 23:32] LABS: ABSOLUTE IMMATURE GRANULOCYTES 0.04 x10^3/uL (0.0-0.031); BASOPHILS # 0.01 x10^3/uL (0.01-0.08); EOSINOPHIL % 0.6 % (0.7-5.8); EOSINOPHILS # 0.03 x10^3/uL (0.04-0.36); HEMATOCRIT 41.7 % (34.1-44.9); HEMOGLOBIN 12.8 g/dL (11.2-15.7); MCHC 30.7 g/dl (32.2-35.5); MEAN PLT VOLUME 11.3 fl (9.4-12.3); MONOCYTE % 7.8 % (4.7-12.5); PLATELET COUNT 167 x10^3/uL (182-369); RDW 12.8 % (12.1-16.8)
[2024-11-29 23:40] LABS: INR 1.15 (0.83-1.09); PROTHROMBIN TIME (PATIENT) 12.7 SEC (9.7-13.0)
[2024-11-29 23:42] LABS: ACTIVATED PTT 28.8 SECONDS (25.2-36.5)
[2024-11-29] MEDS: LACTATED RINGERS SOLUTION 1000 ML INFUS.BAG IV ONE (23:45)
[2024-11-29 23:53] LABS: POTASSIUM 4.1 mmol/L (3.5-5.1)
[2024-11-29 23:55] LABS: ALBUMIN 3.8 g/dl (3.4-5.0); BLOOD UREA NITROGEN 19.4 mg/dL (7-18); CALCIUM 9.3 mg/dL (8.5-10.1)
[2024-11-29 23:58] LABS: CREATININE 1.6 mg/dL (0.55-1.3)
[2024-11-30] LABS: BILIRUBIN,TOTAL 1.4 mg/dL (0.2-1); TOT PROT 6.4 g/dl (6.4-8.2)
[2024-11-30 01:53] LABS: EPI CELLS >36 /uL (0-25.1); HYALINE CASTS 0 /uL (0-3.1); PH,URINE 6.5 (5.0-8.0); URINE APPEARANCE CLOUDY; URINE BACTERIA 844 /uL (0-1359); URINE BILIRUBIN NEGATIVE (NEGATIVE); URINE COLOR YELLOW; URINE GLUCOSE (UA) NEGATIVE (NEGATIVE); URINE KETONE NEGATIVE (NEGATIVE); URINE LEUK ESTERASE 3+ (NEGATIVE); URINE NITRITE NEGATIVE (NEGATIVE); URINE PROTEIN NEGATIVE (NEGATIVE); URINE RBC 25 /uL (0-23.9); URINE WBC 106 /uL (0-25.8)
[2024-11-30] MEDS ORDERED: CEFTRIAXONE 1 G/50 ML PREMIX 50 ML IVPB ONE (02:36)
[2024-11-30] MEDS: CEFTRIAXONE 1 GM in DEXTROSE 5%-WATER - 100 ML IVPB ONE (02:40)
[2024-11-30] MEDS: REMDESIVIR 200 MG in SODIUM CHLORIDE 250 ML IVPB ONE (03:13)
[2024-11-30] MEDS ORDERED: ACETAMINOPHEN INJECTION 100 ML ONE (03:41)
[2024-11-30] MEDS: ACETAMINOPHEN 1000 MG/100 ML BAG IVPB ONE (03:44)
[2024-11-30] MEDS ORDERED: DOCUSATE SODIUM 100 MG CAPSULE (FP) PO PRN (04:23)
[2024-11-30 06:39] LABS: CALCIUM 9.8 mg/dL (8.5-10.1); POTASSIUM 4.2 mmol/L (3.5-5.1)
[2024-11-30 06:40] LABS: BLOOD UREA NITROGEN 17.8 mg/dL (7-18); MAGNESIUM 1.8 mg/dL (1.8-2.4)
[2024-11-30 06:43] LABS: CREATININE 1.5 mg/dL (0.55-1.3)
[2024-11-30 06:44] LABS: PHOSPHOROUS 3.1 mg/dL (2.5-4.9)
[2024-11-30] MEDS ORDERED: FAMOTIDINE 20 MG TABLET ONE (10:42)
[2024-11-30] MEDS: FAMOTIDINE 20 MG TABLET PO SCH (10:50)
[2024-11-30] MEDS: predniSONE 20 MG TABLET (UD) PO SCH (10:50)
[2024-11-30] MEDS: TACROLIMUS ANHYDROUS 1 MG CAPSULE PO SCH (10:50)
[2024-11-30] MEDS ORDERED: ACETAMINOPHEN 325 MG TABLET (FP) ONE (10:58)
[2024-11-30] MEDS: ACETAMINOPHEN 325 MG TABLET (FP) PO PRN (10:59)
[2024-11-30 14:31] VITALS: BMI 46.9
[2024-11-30] MEDS: FLUCONAZOLE 150 MG TABLET PO ONE (15:21)
[2024-11-30 15:30] LABS: N-TERMINAL BNP 326.7 pg/ml (5-125)
[2024-11-30] MEDS: HEPARIN NA (PORCINE) 5,000 UNITS/ML 1ML VIAL SQ SCH (15:51)
[2024-11-30] MEDS: ALBUTEROL SO4 2.5/IPRATROPIUM 0.5 INH SOL 3 ML VIAL.NEB. NEB SCH (16:23)
[2024-12-01] MEDS: REMDESIVIR 100 MG in SODIUM CHLORIDE 250 ML IVPB SCH (09:56)
[2024-12-01] MEDS: CEFTRIAXONE 1 G/50 ML PREMIX 50 ML IVPB SCH (09:56)
[2024-12-01] MEDS: amLODIPine BESYLATE 5 MG TABLET (FP) PO SCH (09:56)
[2024-12-01] MEDS ORDERED: CEFTRIAXONE 1 GM in DEXTROSE 5%-WATER - 50 ML IVPB SCH (10:00)
[2024-12-01 14:39] LABS: RDW 12.8 % (12.1-16.8)
[2024-12-01 14:40] LABS: ABSOLUTE IMMATURE GRANULOCYTES 0.01 x10^3/uL (0.0-0.031); EOSINOPHIL % 1.9 % (0.7-5.8); EOSINOPHILS # 0.04 x10^3/uL (0.04-0.36); HEMATOCRIT 42.8 % (34.1-44.9); MCHC 30.4 g/dl (32.2-35.5); MEAN CELL VOLUME 92.4 fl (79.4-94.8); MEAN PLT VOLUME 12.5 fl (9.4-12.3); MONOCYTE # 0.24 x10^3/uL (0.24-0.86); MONOCYTE % 11.4 % (4.7-12.5); PLATELET COUNT 123 x10^3/uL (182-369)
[2024-12-02 11:41] LABS: ABSOLUTE IMMATURE GRANULOCYTES 0.02 x10^3/uL (0.0-0.031); BASOPHILS # 0.01 x10^3/uL (0.01-0.08); EOSINOPHIL % 4.4 % (0.7-5.8); EOSINOPHILS # 0.11 x10^3/uL (0.04-0.36); HEMATOCRIT 46.7 % (34.1-44.9); HEMOGLOBIN 14.1 g/dL (11.2-15.7); MCHC 30.2 g/dl (32.2-35.5); MEAN CELL VOLUME 92.7 fl (79.4-94.8); MEAN PLT VOLUME 11.8 fl (9.4-12.3); MONOCYTE # 0.27 x10^3/uL (0.24-0.86); MONOCYTE % 10.8 % (4.7-12.5); PLATELET COUNT 171 x10^3/uL (182-369); RDW 12.9 % (12.1-16.8)
[2024-12-02 12:00] LABS: POTASSIUM 4.5 mmol/L (3.5-5.1)
[2024-12-02 12:02] LABS: CALCIUM 9.5 mg/dL (8.5-10.1)
[2024-12-02 12:03] LABS: ALBUMIN 3.7 g/dl (3.4-5.0); BLOOD UREA NITROGEN 20.2 mg/dL (7-18)
[2024-12-02 12:06] LABS: CREATININE 1.4 mg/dL (0.55-1.3)
[2024-12-02 12:08] LABS: BILIRUBIN,TOTAL 0.7 mg/dL (0.2-1); TOT PROT 6.7 g/dl (6.4-8.2)
[2024-12-02] MEDS ORDERED: HYDROCORTISONE 0.5% TOPICAL OINTMENT TUBE TP PRN (12:15)
[2024-12-02] MEDS: HYDROCORTISONE 0.5% TOPICAL CREAM 30 GM TUBE TP PRN (13:28)
[2024-12-03 07:42] VITALS: RESP 18
[2024-12-03 13:55] VITALS: BP 124/85; PULSE 82; TEMP 98.1
[2024-12-05] MEDS ORDERED: ERGOCALCIFEROL (VIT D2) 50,000 UNIT (1.25 MG) CAPSULE PO SCH (10:00)
== END 2024-12-03 14:41 | disposition home or self-care (01) | DRG 178 ==
LOC: JER 22:26 → UNDOADMOB 11-30 02:35 → INTOOBSV 11-30 02:35 → JERBED 11-30 02:35 → J7W 11-30 12:44 → OBSVTOIN 12-03 09:36
PROVIDERS: ADMIT Internal Medicine; ATTEND Internal Medicine
PROC: XW033E5 Introduction of Remdesivir Anti-infective into Peripheral Vein, Percutaneous Approach, New Technology Group 5 (ICD-10-PCS; principal; 2024-11-30)
DX: U07.1 COVID-19 (principal); N39.0 Urinary tract infection, site not specified; Z94.0 Kidney transplant status; Z68.42 Body mass index [BMI] 45.0-49.9, adult; J45.909 Unspecified asthma, uncomplicated; M32.9 Systemic lupus erythematosus, unspecified; I12.9 Hypertensive chronic kidney disease with stage 1 through stage 4 chronic kidney disease, or unspecified chronic kidney disease; N18.9 Chronic kidney disease, unspecified; E66.01 Morbid (severe) obesity due to excess calories
CPT/HCPCS: 0241U-QW; 36415; 71045-TC-FY; 80048; 80053; 80061; 81003; 83036; 83605; 83735; 83880; 84100; 84443; 84484; 85025; 85610; 85730; 87040; 87086; 93005; 93010; 93306-TC; 94640; 99285-25; G0378; J0131; J0248

== ENCOUNTER 2025-01-26 13:37 | Emergency (ER) | payer OTHER ==
[2025-01-26 13:46] VITALS: RESP 20; BMI 45.2
[2025-01-26 16:31] LABS: ABSOLUTE IMMATURE GRANULOCYTES 0.02 x10^3/uL (0.0-0.031); BASOPHILS # 0.01 x10^3/uL (0.01-0.08); EOSINOPHIL % 1.3 % (0.7-5.8); EOSINOPHILS # 0.07 x10^3/uL (0.04-0.36); MCHC 30.2 g/dl (32.2-35.5); MEAN CELL VOLUME 92.7 fl (79.4-94.8); MEAN PLT VOLUME 11.7 fl (9.4-12.3); MONOCYTE # 0.53 x10^3/uL (0.24-0.86); MONOCYTE % 9.7 % (4.7-12.5); RDW 12.6 % (12.1-16.8)
[2025-01-26 16:51] LABS: CO2 24.0 mmol/L (21-32); GLUCOSE,RANDOM 96.0 mg/dL (74-106)
[2025-01-26 16:54] LABS: CREATININE 1.5 mg/dL (0.55-1.3); SGOT/AST 14.0 U/L (15-37); SGPT/ALT 25.0 U/L (13-61)
[2025-01-26 16:56] LABS: TOT PROT 6.9 g/dl (6.4-8.2)
[2025-01-26 16:57] LABS: ALK PHOS 93.0 U/L (45-117)
[2025-01-26 16:58] LABS: URINE APPEARANCE CLEAR; URINE BILIRUBIN NEGATIVE (NEGATIVE); URINE COLOR YELLOW; URINE GLUCOSE (UA) NEGATIVE (NEGATIVE); URINE KETONE NEGATIVE (NEGATIVE); URINE LEUK ESTERASE NEGATIVE (NEGATIVE); URINE NITRITE NEGATIVE (NEGATIVE); URINE PROTEIN NEGATIVE (NEGATIVE); URINE UROBILINOGEN 0.2 mg/dL (0.2-1.0)
[2025-01-26 17:48] VITALS: BP 139/79; PULSE 77; TEMP 99
== END 2025-01-26 17:45 | disposition home or self-care (01) ==
LOC: JER 13:37
DX: R10.9 Unspecified abdominal pain (principal)
CPT/HCPCS: 36415; 76775-TC; 80053; 80197; 81003; 84703; 85025; 87086; 99284-25